=== PATIENT | female | born 1950 | race Caucasian/White ===

== ENCOUNTER 2021-04-15 18:42 | Inpatient (IN) | payer OTHER ==
[~2021-04-15] VITALS: Ht 170.2 cm; Wt 60.0 kg
[2021-04-15 20:45] VITALS: BP 116/54
[2021-04-15] MEDS ORDERED: BENICAR40 MG PO (22:37)
[2021-04-15] MEDS ORDERED: LEVO-T100 MCG PO (22:37)
[2021-04-15] MEDS ORDERED: NORVASC5 M1 PO (22:37)
[2021-04-15] MEDS ORDERED: LIPITOR 20 MG T20 M1 PO (22:37)
[2021-04-15] MEDS ORDERED: VENTOLIN HFA 1818 GM INH (22:39)
[2021-04-16 00:10] VITALS: BP 111/58
--- NOTE | 2021-04-16 00:33 | NUR ---
pt is a direct admit from [facility], pt admitted to room 215 at around 2015, awake, alert and orientedx4, denies pain or sob, admission assessment, hx and education completed, iv abx and fluids administered as per mar, no needs at this time, pt sleeping in no distress, will continue to monitor and follow poc
[2021-04-16 04:49] LABS: HEMATOCRIT 29.1 % (37.0-47.0); HEMOGLOBIN 9.8 gm/dL (12.0-15.0); MCH 33.9 pg (26.0-34.0); MCHC 33.7 g/dL (28.0-37.0); MCV 100.5 fL (80.0-100.0); RBC 2.9 mil/uL (4.20-5.00); RDW 13.3 % (10.5-14.5); WBC 10.9 thou/uL (4.0-11.0)
[2021-04-16 04:55] VITALS: BP 119/58
[2021-04-16 05:14] LABS: CALCIUM 7.8 mg/dL (8.5-10.1); CREATININE 0.5 mg/dL (0.6-1.0); POTASSIUM 3.2 mmol/L (3.5-5.1)
[2021-04-16 07:45] VITALS: BP 118/51
--- NOTE | 2021-04-16 08:10 | NUR ---
INITIAL ASSESSMENT: PT STATED SHE LIVES HOME WITH SPOUSE. PT HAS NO STAIRS TO NAVIGATE TO ENTER HOME OR INSIDE. PT USES 0 DMES. PT IS ACTIVE AND INDEPENDENT W/CARES. PT DENIES HX WITH HH. HOWEVER, PT'S SPOUSE HAS USED [facility] IN THE PAST. PT STATED SHE DOES NOT WANT HH AT THIS TIME. PT DENIES HX W/ SNF. PCP IS BEVERLY BASURTO. CM TO CONT TO FOLLOW.
[2021-04-16 10:22] LABS: % SATURATION 26 % (20-39); IRON 21 ug/dL (50-170); TIBC 82 ug/dL (250-450)
[2021-04-16 10:49] LABS: FOLIC ACID 10.6 ng/mL (8.6-58.9)
[2021-04-16 12:14] VITALS: BP 107/53
[2021-04-16 17:40] VITALS: BP 125/63
[2021-04-16 20:31] VITALS: BP 116/60
[2021-04-17 05:24] VITALS: BP 123/63
[2021-04-17 08:11] VITALS: BP 115/63
--- NOTE | 2021-04-17 09:42 | NUR ---
ASSUMED PT CARE AT 0700, ASSESSMENT PERFORMED CHARTED AT THIS TIME DUE TO POC. PT VOICES CONCERNS ABOUT A DIET, HOWEVER EDUCATED PT THAT SHE IS NPO FOR A POSSIBLE PROCEDURE TODAY. VSS. WILL CONTINUE TO MONITOR AND FOLLOW POC.
[2021-04-17 10:34] LABS: HEMOGLOBIN 10.3 gm/dL (12.0-15.0); MCH 33.6 pg (26.0-34.0); MCHC 33.4 g/dL (28.0-37.0); MCV 100.5 fL (80.0-100.0); RBC 3.08 mil/uL (4.20-5.00); RDW 13.4 % (10.5-14.5); WBC 7.7 thou/uL (4.0-11.0)
[2021-04-17 10:37] LABS: CALCIUM 7.5 mg/dL (8.5-10.1); CREATININE 0.4 mg/dL (0.6-1.0); MAGNESIUM 1.7 mg/dL (1.8-2.4); POTASSIUM 3.4 mmol/L (3.5-5.1)
[2021-04-17 11:28] VITALS: BP 102/55
--- NOTE | 2021-04-17 12:18 | NUR ---
PT ASSESSMENT UNCHANGED. PT WENT BACK TO BED FOLLOWING HAVING A BOWEL MOVEMENT IN THE BEDSIDE COMMODE. FAMILY AT PTS BEDSIDE ONCE BACK IN BED, PT STATES SHE WOULD LIKE TO KNOW WHEN THEY ARE INSERTING THE SECOND TUBE, ATTEMPTED TO CALL SURGERY. VSS.WILL CONTINUE TO MONITOR AND FOLLOW POC.
[2021-04-17 15:48] VITALS: BP 119/60
[2021-04-17 20:39] VITALS: BP 125/54
[2021-04-18 05:20] LABS: HEMATOCRIT 29.5 % (37.0-47.0); HEMOGLOBIN 9.6 gm/dL (12.0-15.0); MCHC 32.5 g/dL (28.0-37.0); MCV 101.5 fL (80.0-100.0); RBC 2.9 mil/uL (4.20-5.00); RDW 13.2 % (10.5-14.5); WBC 7.4 thou/uL (4.0-11.0)
[2021-04-18 05:35] VITALS: BP 126/82
[2021-04-18 06:23] LABS: ALBUMIN 1.3 g/dL (3.4-5.0); CALCIUM 7.4 mg/dL (8.5-10.1); CREATININE 0.7 mg/dL (0.6-1.0); PHOSPHORUS 2.7 mg/dL (2.5-4.9)
[2021-04-18 06:24] LABS: POTASSIUM 2.7 mmol/L (3.5-5.1)
--- NOTE | 2021-04-18 06:34 | NUR ---
ASSESSMENT CHARTED, PRN PAIN MED GIVEN THIS AM FOR CT SITE PAIN WITH ACTIVITY, VSS, CT WITH PURELLENT DRAINAGE, SITE REMAINS INTACT, WILL CON'T TO MONITOR PER PPOC.
[2021-04-18 08:04] VITALS: BP 113/50
[2021-04-18 12:06] VITALS: BP 100/50
[2021-04-18 15:29] VITALS: BP 124/56
--- NOTE | 2021-04-18 15:53 | NUR ---
BPCI letter and preferred provider list provided to patient, lives in home setting
--- NOTE | 2021-04-18 17:00 | NUR ---
Case discussed with the care team. Pt being evaluated by CTS for possible VATS. Will continue to follow should dc planning needs arise.
[2021-04-18 19:28] VITALS: BP 126/69
--- NOTE | 2021-04-18 19:36 | NUR ---
ASSUMED CARE SHIFT CHANGE.VSS DENIES PAIN. O2 SATS WNL 1-2L. DENIES SOB. CHEST TUBE WITH WHITE PURULENT DRAINAGE. DR GRAHAM CONTACTED REGARDING FLUSHING ORDER. CONFIRMED TO FLUSH CHEST TUBE BY ICU NURSE ONLY. REFER TO ORDER. TUBE FLUSHED BY CREATIVE GURU WITH NO COMPLICATIONS. PERIPH IV'S INFILTRATE FREQ. PHYSICIAN NOTIFIED. ORDER FOR PICC LINE, IV TEAM TO INSERT. DOUBLE PICC FLUSING AND DRAWING WELL. INFO PASSED ONTO BC RN. C/O CONSTIPATION ORDERS FOR MIRALAX. PT TO DC ONCE MEDICALLY STABLE. FAMILY UPDATED ON POC. DENIES NEEDS AT THIS TIME. REPORT PASSED ONTO NOC RN.
[2021-04-19 03:52] VITALS: BP 129/67
[2021-04-19 05:21] LABS: HEMATOCRIT 27.6 % (37.0-47.0); HEMOGLOBIN 9.2 gm/dL (12.0-15.0); MCH 33.9 pg (26.0-34.0); MCHC 33.5 g/dL (28.0-37.0); MCV 101.3 fL (80.0-100.0); RBC 2.72 mil/uL (4.20-5.00); RDW 13.1 % (10.5-14.5); WBC 4.5 thou/uL (4.0-11.0)
[2021-04-19 05:44] LABS: CALCIUM 7.6 mg/dL (8.5-10.1); CREATININE 0.9 mg/dL (0.6-1.0)
[2021-04-19 05:49] LABS: POTASSIUM 2.9 mmol/L (3.5-5.1)
[2021-04-19 08:15] VITALS: BP 119/61
--- NOTE | 2021-04-19 08:27 | NUR ---
ASSESSMENTS CHARTED, MEDS CHARTED GIVEN. PATIENT RESTING IN BED DURING SHIFT. UP TO BSC WITH ASSIST X 1. PATIENT HAS CHEST TUBE TO ATRIUM WITH 230ML OF PURALENT FLUID. ICU CHARGE NURSE FLUSHED CHEST TUBE WITH 10CC NS. PATIENT HAD BOWEL MOVEMENT DURING SHIFT. PATIENT HAD CRITICAL POTASSIUM LEVEL THIS MORNING RECEIVED ORDERS, MEDS GIVEN. FALL PRECAUTIONS IN PLACE DURING SHIFT.
--- NOTE | 2021-04-19 11:36 | HC ---
[facility] [place] [address] CONSULTATION Name: VIOLET MARTINEZ Room #: 215- ADM IN M.R.#: [id number] Admission: 04/15/21 Attend Phys: Raza Kim MD Discharge: Date of : 46 Report #: [id number] THIS REPORT FOR: cc: FAM - Family physician unknown FAM - Family physician unknown Doc Castillo MD ~ DOC #: [id number] Doc Castillo MD DATE OF SERVICE: 04/16/2021 We were asked to see the patient. HISTORY OF PRESENT ILLNESS: The patient is a 70-year-old, transferred from the [facility] for a loculated pleural effusion. The patient has a history of asthma, hypertension, hyperlipidemia, and hypothyroidism. The patient states that she has not been feeling well for the last 2 weeks. The patient reports a productive cough associated with weakness, malaise, and lethargy for the last 2 weeks. The patient states that she had a x-ray taken and a large pleural effusion led to transfer to this facility. PAST MEDICAL HISTORY: As mentioned, hypertension, hyperlipidemia, and hypothyroidism. ALLERGIES: None known. MEDICATION: None per patient. REVIEW OF SYSTEMS: I agree with the review of systems as dictated in the Emergency Department. PHYSICAL EXAMINATION: GENERAL: The patient is in bed, reasonably comfortable, in no distress. VITAL SIGNS: Temperature 36.9, heart rate 90, blood pressure 118/51, O2 sat 96 on room air. HEENT: No scleral icterus. No arcus. NECK: No mass, no bruit. CHEST: Decreased breath sounds right lower chest. HEART: Rhythm regular, no murmur. ABDOMEN: Soft. EXTREMITIES: No clubbing, cyanosis or edema. SKIN: No rash or infection. NEUROLOGIC: No motor or sensory dysfunction. MUSCULOSKELETAL: No bone or joint asymmetry or deformity. [facility] [address] [place] [address] CONSULTATION Name: VIOLET MARTINEZ Room #: 215-P ADM IN M.R.#: [id number] Admission: 04/15/21 Attend Phys: Raza Kim MD Discharge: Date of : 46 Report #: [id number] PSYCHIATRIC: Shows insight into problem, but seems to have a flat affect. DIAGNOSTIC DATA: Chest CT scan from [place] shows loculated right pleural effusion with compressed lung. No obvious mass beyond. ASSESSMENT AND PLAN: The patient has a loculated pleural effusion, which may represent parapneumonic effusion. We note the patient has been scheduled for chest tube placement. If this does not drain the effusion satisfactorily, then the patient might be a candidate for video-assisted thoracoscopy. Alternatively, a trial of lytic therapy could be organized. We will await the results of the chest tube placement for further recommendations. Thank you for the consult. MD JOSE Garcia/YAMEL <ELECTRONICALLY SIGNED> By: Doc Castillo MD 04/19/21 [id number] Doc Castillo MD /nt
[2021-04-19 12:15] VITALS: BP 124/61
[2021-04-19 16:00] VITALS: BP 108/60
--- NOTE | 2021-04-19 17:11 | NUR ---
ASSESSMENT CHARTED - MEDS PER JAN - GIVEN TYLENOL X 1 DOSE FOR CO'S OF PAIN AT CHEST TUBE SITE WITH GOOD RELIEF PT SLEEPING POST MED. EMMA DIET AND FLUIDS. UP TO THE BSC AND TO SIT IN THE CHAIR WITH MIN ASSIST. PT ABLE TO HAVE CHEST TUBE PLACED TO WATER SEAL TO AMBULATE PER DR MERRILL. IV FLUIDS CONT ORDERED . NO CO'S AT THE PRESENT TIME.
[2021-04-19 19:34] VITALS: BP 114/52
--- NOTE | 2021-04-19 20:05 | NUR ---
1815-C.T. FLUSHED W 10ML STERILE NS. PT EMMA WELL.--VW
--- NOTE | 2021-04-20 02:56 | NUR ---
ASSESSMENTS CHARTED, MEDS CHARTED GIVEN. RESTING IN BED DURING SHIFT. CHEST TUBE STILL IN PLACE DRAINING PURULENT FLUID. PLAN OF CARE TO INCLUDE SURGICAL PROCEDURE ON WEDNESDAY TO CLEAN AND DRAIN ABSCESS. FALL PRECAUTIONS IN PLACE DURING SHIFT.
[2021-04-20 04:13] VITALS: BP 120/57
[2021-04-20 04:51] LABS: HEMOGLOBIN 9.4 gm/dL (12.0-15.0); MCH 33.6 pg (26.0-34.0); MCHC 33.6 g/dL (28.0-37.0); MCV 100.1 fL (80.0-100.0); RBC 2.8 mil/uL (4.20-5.00); RDW 13.4 % (10.5-14.5); WBC 4.8 thou/uL (4.0-11.0)
[2021-04-20 05:31] LABS: ALBUMIN 1.3 g/dL (3.4-5.0); CALCIUM 7.9 mg/dL (8.5-10.1); CREATININE 0.8 mg/dL (0.6-1.0); PHOSPHORUS 2.2 mg/dL (2.5-4.9); POTASSIUM 3.3 mmol/L (3.5-5.1)
[2021-04-20 08:00] VITALS: BP 121/54
[2021-04-20 12:27] VITALS: BP 115/48
[2021-04-20 16:00] VITALS: BP 121/66
--- NOTE | 2021-04-20 17:21 | NUR ---
ASSESSMENTS CHARTED - MEDS PER JAN - NO CO'S OF PAIN OR NASUEA. K+ AND MAG REPLACED ORDERED - MAG REMIANS LOW WILL CONTINUE TO REPLACE AND K+ IF IT REMAINS LOW. CT SCAN COMPLETED THIS AM - NOTED BY DR MERRILL - DR MERRILL IN TO SEE PATIENT POST SCAN. UP TO THE BSC - CHEST TUBE TO WATER SEAL WHILE PT AT SCAN NO CO'S OF SOB WHILE ON WATERSEAL. PT UP TO THE CHAIR. PT STATES THAT SHE IS FEELING BETTER- REMAINS WITH POOR APPITITE. NO CO'S AT THE PRESENT TIME.
[2021-04-20 18:46] LABS: POTASSIUM 3.3 mmol/L (3.5-5.1)
[2021-04-20 20:30] VITALS: BP 122/56
--- NOTE | 2021-04-21 04:38 | NUR ---
ASSESSMENTS CHARTED, MEDS CHARTED GIVEN. PATIENT RESTING IN BED DURING SHIFT. UP TO BSC WITH ASSIST. ON ELECTROLYTE PROTOCOL RECEIVED POTASSIUM REPLACEMENT. CHEST TUBE TO -20 SUCTION DURING SHIFT. PLAN OF CARE IS TO CONTINUE ON ANTIBIOTIC THERAPY. NO IMMEDIATE SURGERY SCHEDULED. FALL PRECAUTIONS IN PLACE DURING SHIFT.
[2021-04-21 04:45] VITALS: BP 122/53
[2021-04-21 08:07] VITALS: BP 131/58
[2021-04-21 15:28] VITALS: BP 128/61
--- NOTE | 2021-04-21 19:59 | NUR ---
PT IS AXOX4, PLEASANT; DENIES PAIN UNLESS CHEST TUBE INSERTION SITE MANIPULATED. VSS, AFEBRILE, SR WITH 1AVB ON MONITOR. DR MERRILL CONSULTED. PT RECEIVED ANTITHROMBOLYTICS IN PLEURAL SPACE TO CONTINUE DRAINAGE. CHEST TUBE IS PIG TAIL ATTACH TO SUCTION AT -20; WATER SEAL IF PT IS UP TO WALK. PT/OT CONSULTED AND WALKED PT. PT IS ON ROOM AIR AND 02 SAT 94%. POC IS TO CONTINUE TO ASSESS DRAINAGE AND PROMOTE ACTIVITY TOLERATED TO CONTINUE TO DRAIN PLEURAL SPACE (EMPYEMA). LOW FALL PRECAUTIONS IN PLACE.
[2021-04-21 20:15] VITALS: BP 117/52
[2021-04-22 04:45] VITALS: BP 124/59
[2021-04-22 07:45] VITALS: BP 142/77
--- NOTE | 2021-04-22 09:43 | NUR ---
RN SPOKE WITH PT'S DAUGHTER JEANINE AND GAVE PT UPDATE AND QUESTIONS ANSWERED.
[2021-04-22 11:40] VITALS: BP 133/68
[2021-04-22] MEDS ORDERED: FLAGYL500 M1 PO (12:11)
[2021-04-22] MEDS ORDERED: AMOXICILLIN 50500 M1 PO (12:11)
[2021-04-22 13:57] VITALS: BP 133/68
--- NOTE | 2021-04-22 14:52 | NUR ---
ON-GOING ASSESSMENT: CM REVIEWED CHART. PTS CT WAS REMOVED. PT DOING WELL WITH THERAPY AND THEY ARE RECOMMENDING HOME. PTS ANBX WERE SWITCHED TO ORAL. CM MET WITH PATIENT AND DISCUSSED HH. PT DOES NOT FEEL SHE NEEDS IT AT THIS TIME. PLANS ARE FOR PATIENT TO DISCHARGE HOME NO NEEDS.
== END 2021-04-22 14:23 | disposition home or self-care (01) | DRG 871 ==
LOC: 2N 18:42
PROVIDERS: Hospitalist; Internal Medicine; Nurse Practitioner Family; ADMIT Internal Medicine; ATTEND Internal Medicine
DX: A41.9 Sepsis, unspecified organism (principal); J86.9 Pyothorax without fistula; E43 Unspecified severe protein-calorie malnutrition; E87.1 Hypo-osmolality and hyponatremia; J90 Pleural effusion, not elsewhere classified; R19.7 Diarrhea, unspecified; I10 Essential (primary) hypertension; E78.5 Hyperlipidemia, unspecified; E03.9 Hypothyroidism, unspecified; F17.210 Nicotine dependence, cigarettes, uncomplicated; M19.90 Unspecified osteoarthritis, unspecified site; E87.6 Hypokalemia; E87.8 Other disorders of electrolyte and fluid balance, not elsewhere classified; R53.81 Other malaise; E83.42 Hypomagnesemia; D53.9 Nutritional anemia, unspecified; Z88.5 Allergy status to narcotic agent; Z68.20 Body mass index [BMI] 20.0-20.9, adult
CPT/HCPCS: 10081; 27000

== ENCOUNTER → 2021-06-30 | Outpatient (CLI) | payer OTHER ==
[~2021-06-30] MED LIST: AMOXICILLIN 50500 M1 PO; BENICAR40 MG PO; FLAGYL500 M1 PO; LEVO-T100 MCG PO; LIPITOR 20 MG T20 M1 PO; NORVASC5 M1 PO; VENTOLIN HFA 1818 GM INH
== END ==
LOC: RAD 13:01
PROVIDERS: ATTEND Internal Medicine Pulmonary Disease
DX: J90 Pleural effusion, not elsewhere classified (principal); J98.11 Atelectasis; M41.84 Other forms of scoliosis, thoracic region; M47.814 Spondylosis without myelopathy or radiculopathy, thoracic region

== ENCOUNTER → 2021-07-25 | Outpatient (CLI) | payer OTHER | LOC: CAT 09:30 | PROVIDERS: ATTEND Internal Medicine Pulmonary Disease | DX: Z12.31 Encounter for screening mammogram for malignant neoplasm of breast (principal); J98.4 Other disorders of lung; J44.9 Chronic obstructive pulmonary disease, unspecified; R06.02 Shortness of breath ==